=== PATIENT | male | born 2000 | race Caucasian/White ===

== ENCOUNTER 2022-05-01 13:40 | Emergency (ER) | payer SELFPAY ==
[~2022-05-01] VITALS: Ht 172.7 cm; Wt 69.1 kg
[2022-05-01 13:41] VITALS: BP 137/78
== END 2022-05-01 17:55 | disposition left against medical advice (07) ==
LOC: M ED 13:40
DX: Z53.21 Procedure and treatment not carried out due to patient leaving prior to being seen by health care provider (principal)

== ENCOUNTER 2024-02-05 15:43 | Emergency (ER) | payer OTHER, SELFPAY ==
[~2024-02-05] VITALS: Ht 172.7 cm; Wt 68.8 kg
[2024-02-05 18:10] VITALS: BP 123/81; TEMP 97.6; O2SAT 99
== END 2024-02-05 18:13 | disposition home or self-care (01) ==
LOC: M ED 15:43
DX: R40.4 Transient alteration of awareness (principal); F17.200 Nicotine dependence, unspecified, uncomplicated; F10.10 Alcohol abuse, uncomplicated